=== PATIENT | female | born 1985 | race Caucasian/White ===

== ENCOUNTER 2019-02-15 10:35 | Day surgery (SDC) | payer BC ==
[~2019-02-15] VITALS: Ht 160 cm; Wt 71.4 kg
[2019-02-15] VITALS (20 sets, daily range): BP systolic 104–130; BP diastolic 46–67; PULSE 80–96; RESP 15–22; Ht 160 cm; Wt 71.4 kg
[2019-02-15] MEDS ORDERED: CEFAZOLIN 2 GM/50 ML (PMX) 50 ML IVPB ONE (12:00)
--- NOTE | 2019-02-15 12:23 | HPN ---
Date/Time of Note Date/Time of Note DATE: 02/15/19 TIME: 12:22 Interval H&P Admission Note Pt. seen H&P reviewed: No system changes JOHNY MERRILL MD February 15, 2019 12:23
--- NOTE | 2019-02-15 12:31 | PREAC ---
Date/Time of Note Date/Time of Note DATE: 02/15/19 TIME: 12:30 Anesthesia Eval and Record Evaluation Time Pre-Procedure Interview DATE: 02/15/19 TIME: 12:30 Age 33 Sex female NPO: 8 hrs Preoperative diagnosis b/l axillary mass Planned procedure b/l axillary mass removal Past Medical History Past Medical History: None Surgery & Anesthesia Issues No known issue Meds Anticoagulation: No Beta Huy within 24 hr: No Reason Beta Huy not given: Pt. not on B-Huy Meds reviewed: Yes Allergies Coded Allergies: ciprofloxacin (Unverified Allergy, Unknown, 02/15/19) shellfish derived (Verified Allergy, Unknown, RASH, 02/15/19) Allergies Reviewed: Yes Labs/Studies Labs Reviewed: Reviewed by anesthesiologist test: Negative Pre-procedure Exam Last vitals Vital Signs Date Temp Pulse Resp B/P (MAP) Pulse Ox O2 O2 Flow FiO2 Time Delivery Rate 02/15/19 97.9 83 16 117/61 99 Room Air 12:01 (79) Airway: Adequate mouth opening Mallampati: Mallampati I Teeth: Normal Lung: Normal Heart: Normal ASA Physical Status ASA physical status: 1 Emergency: None Planned Anesthetic General/MAC: ETT Pre-operative Attestations Prior to commencing anesthesia and surgery, the patient was re-evaluated, there was verification of: *The patient's identity *The results of appropriate recent lab work and preoperative vital signs *The above evaluation not changing prior to induction *Anesthetic plan, risk benefits, alternative and complications discussed with patient/family; questions answered; patient/family understands, accepts and wishes to proceed. CHARLIE AGUILAR MD February 15, 2019 12:31
[2019-02-15] MEDS ORDERED: BUPIVACAINE 0.5% (SDV) 30 ML INJ ONE (12:46)
[2019-02-15] MEDS ORDERED: LIDOCAINE 1%/EPI (1:100,000) (MDV) 20 ML ONE (12:46)
[2019-02-15] MEDS ORDERED: PROPOFOL 20 ML ONE (12:55)
[2019-02-15] MEDS ORDERED: ROCURONIUM 50 MG INJ ONE (12:55)
[2019-02-15] MEDS ORDERED: MIDAZOLAM 1 MG/ML 2 ML INJ ONE (12:56)
[2019-02-15] MEDS ORDERED: HYDROmorphONE 2 MG/ML SYG ONE (12:56)
[2019-02-15] MEDS ORDERED: ONDANSETRON 4 MG INJ ONE (13:35)
[2019-02-15] MEDS ORDERED: HYDROmorphONE 1 MG/5 ML IV SYRINGE IV PRN ×2 (14:00)
[2019-02-15] MEDS ORDERED: hydrALAzine 20 MG INJ IV PRN (14:00)
[2019-02-15] MEDS ORDERED: MEPERIDINE 25 MG INJ IV PRN (14:00)
[2019-02-15] MEDS ORDERED: LABETALOL HCL 20MG INJ IV PRN (14:00)
[2019-02-15] MEDS ORDERED: METOCLOPRAMIDE 10 MG INJ IV PRN (14:00)
[2019-02-15] MEDS ORDERED: SUGAMMADEX SODIUM 200 MG/2 ML VIAL IV ONE (14:34)
--- NOTE | 2019-02-15 15:28 | OPR ---
Date/Time of Note Date/Time of Note DATE: 02/15/19 TIME: 15:16 Operative Report Procedure Date: February 15, 2019 Preoperative Diagnosis Bilateral axillary lesions, symptomatic Postoperative Diagnosis Bilateral axillary lesions, symptomatic (right 7 x 6 cm, left 6 x 6 cm) Operation/Procedure Performed 1. Excision of bilateral axillary regions (right 7 x 6 cm, left 6 x 6 cm) 2. Local anesthetic injection, [id number] Surgeon Johny Merrill MD [employer] None Anesthesia Type: general (And local) Anesthesiologist: CHARLIE AGUILAR MD Estimated Blood Loss: 0 - 10 ml's Transfusion none Specimen Bilateral axillary lesions Grafts/Implants Amnion left Tubes/Drains None Complications none Pt Condition Post Procedure: stable Disposition: PACU Indications 33-year-old female with groin lesions in bilateral axilla. These are also painful and cause change in sensations. Also there is concern for malignancy. Patient is here for excision. Risks include but are not limited to bleeding, infection, abscess, seroma, damage to surrounding structures, chronic wound, recurrence, chronic pain, need for re-operations or further surgeries, [place], stroke, PE, DVT, pneumonia, organ failures, or even . Procedure Description Patient is brought in and placed supine in the operating table. All pressure points are well-padded. SCDs were placed. After induction of anesthesia preoperative antibiotics it is ministered. She is prepped and draped sterilely and timeout is performed. Local anesthetic injection was performed at surgical sites. Elliptical incisions were made into the skin and subcutaneous tissue of bilate ral axilla initially with left and right. The lesions were extending deep into the axilla were followed with electrocautery and from the surrounding tissues. The excision was finalized and complete hemostasis was obtained. Deep spaces were closed with 2-0 Vicryl interrupted fashion followed by 2-0 Vicryl subcutaneous closure followed by 2-0 Vicryl dermal closure followed by 4-0 Monocryl subcuticular closure. This was performed on both sides. Dermabond was applied. Patient was extubated transferred to recovery in stable condition and all counts were correct at the end of the operation x2. JOHNY MERRILL MD February 15, 2019 15:27
[2019-02-15] MEDS ORDERED: HYDROCODONE/APAP (5/325) TAB PO PRN (15:30)
[2019-02-15] MEDS ORDERED: morphine 2 MG INJ IV PRN (15:30)
[2019-02-15] MEDS ORDERED: ONDANSETRON 4 MG INJ IV PRN (15:30)
[2019-02-15] MEDS: ONDANSETRON 4 MG INJ IV PRN ×2 (16:07→17:38)
[2019-02-15] MEDS ORDERED: DEXAMETHASONE 4 MG/ML 1 ML INJ ONE (17:58)
[2019-02-15] MEDS ORDERED: DEXAMETHASONE 4 MG/ML 1 ML INJ IV ONE (18:00)
[2019-02-15] MEDS ORDERED: RACEPINEPHRINE 2.25%(NEB) 0.5 ML AMP HHN ONE (18:00)
--- NOTE | 2019-02-15 19:59 | PAC ---
Date/Time of Note Date/Time of Note DATE: 02/15/19 TIME: 19:54 Post-Anesthesia Notes Post-Anesthesia Note Last documented vital signs Vital Signs Date Temp Pulse Resp B/P (MAP) Pulse Ox O2 O2 Flow FiO2 Time Delivery Rate 02/15/19 85 18 98 21 18:27 02/15/19 97.8 112/55 Room Air 16:21 (74) 02/15/19 3.0 15:03 Activity: WNL Respiratory function: WNL Cardiovascular function: WNL Mental status: Baseline Pain reasonably controlled: Yes Hydration appropriate: Yes Nausea/Vomiting absent: Yes Comments p[atient complained of sore throat and horeness bof voice in short stay post op.patient was hemodynamically stable without stridor and was given decadron and and recewmic epi to help ease the sore throat . patient was educated that its normal to have sore throat and it will be there for aprox 72 hrs and was adviced to come to ER if she gets worse or has difficulty in breathing . the surgeon was also made aware and he agreed CHARLIE AGUILAR MD February 15, 2019 19:59
== END 2019-02-15 19:10 | disposition home or self-care (01) ==
LOC: SDS 10:35
PROVIDERS: ATTEND Surgery
DX: D17.22 Benign lipomatous neoplasm of skin and subcutaneous tissue of left arm (principal); D17.21 Benign lipomatous neoplasm of skin and subcutaneous tissue of right arm
CPT/HCPCS: 11406; 88307; 94664; J0690; J1100; J1170; J2175; J2250; J2270; J2405